=== PATIENT | female | born 1990 | race African-American/Black ===

== ENCOUNTER 2017-05-19 19:33 | Emergency (ER) | payer BC ==
[2017-05-19] MEDS ORDERED: Dexamethasone 4 MG TAB ONE (19:52)
== END 2017-05-19 19:58 | disposition home or self-care (01) ==
LOC: SCSER 19:33
DX: J06.9 Acute upper respiratory infection, unspecified (principal); F41.9 Anxiety disorder, unspecified
CPT/HCPCS: 99283; J8540